=== PATIENT | female | born 2000 ===

== ENCOUNTER 2020-07-05 18:05 | Emergency (ER) | payer OTHER ==
--- NOTE | 2020-07-05 18:28 | EDM.PDOC ---
<Cedric Fulton - Last Filed: 07/05/20 19:10> ED HPI GENERAL MEDICAL PROBLEM - General Chief Complaint: General Stated Complaint: SINUS CONGESTION AND SWOLLEN LEGS Time Seen by Provider: 07/05/20 18:28 - History of Present Illness INITIAL COMMENTS - FREE TEXT/NARRATIVE: 19-year-old female presents the emergency room with significant sinus pressure and congestion and leg swelling. The patient was on a long flight 2 days ago from [place] to here and since that time she has had increased problems with her leg swelling up right leg much worse than the left. Patient has had worsening sinus congestion with greenish off-color discharge. She really has not had any fevers or chills this has been progressing but has really been bad for the last 24 hours. Seems to be worse underneath her left eye. Bilateral Lower Leg Pain Score (Numeric/FACES): 8 - Related Data Allergies Allergy/AdvReac Type Severity Reaction Status Date / Time morphine Allergy Rash Verified 07/05/20 18:30 Home Meds: Home Meds Amoxicillin/Potassium Clav [Augmentin 875-125 Tablet] 1 each PO BID #20 tablet 07/05/20 [Rx] Furosemide [Lasix] 20 mg PO DAILY 07/05/20 [History] Pregabalin [Lyrica] 50 mg PO DAILY 07/05/20 [History] Spironolactone [Aldactone] 100 mg PO DAILY 07/05/20 [History] Topiramate [Topamax] 150 mg PO DAILY 07/05/20 [History] metFORMIN [Glucophage XR] 500 mg PO DAILY 07/05/20 [History] ED ROS GENERAL - Review of Systems Review Of Systems: See Below Constitutional: Reports: No Symptoms HEENT: Reports: Rhinitis, Sinus Problem. Denies: No Symptoms Respiratory: Reports: No Symptoms Cardiovascular: Reports: No Symptoms GI/Abdominal: Reports: No Symptoms Musculoskeletal: Reports: No Symptoms Skin: Reports: No Symptoms Neurological: Reports: No Symptoms Psychiatric: Reports: No Symptoms ED EXAM, GENERAL - Physical Exam Exam: See Below Exam Limited By: No Limitations General Appearance: Alert, No Apparent Distress Eye Exam: Bilateral Eye: Normal Inspection Ears: Normal External Exam, Normal Canal, Hearing Grossly Normal, Normal TMs Nose: Normal Inspection, Normal Mucosa, No Blood, Other (Sinus percussion shows marked sinus tenderness over the left maxillary sinus and to a lesser degree right frontal sinus) Throat/Mouth: Normal Inspection, Normal Lips, Normal Teeth, Normal Gums, Normal Oropharynx, Normal Voice, No Airway Compromise Neck: Normal Inspection, Supple, Non-Tender, Full Range of Motion. No: Lymphadenopathy (L), Lymphadenopathy (R) Respiratory/Chest: No Respiratory Distress, Lungs Clear, Normal Breath Sounds Cardiovascular: Regular Rate, Rhythm, No Edema, No Murmur Extremities: Other (Palpation of the left lower leg is normal the right lower leg is slightly more swollen than the left she has pain along the medial aspect of the lower leg no significant redness or warmth however) Neurological: Alert, Oriented, CN II-XII Intact, Normal Cognition, Normal Gait, Normal Reflexes, No Motor/Sensory Deficits Course - Re-Assessments/Exams Free Text/Narrative Re-Assessment/Exam: 07/05/20 19:13 We will check a lower leg Doppler of the right leg. We will check some basic labs make sure she does not have any electrolyte anomalies and then she can increase her Lasix to 40 mg daily for a couple of days. We will send in a prescription for Augmentin for sinus infection however the patient's been advised to hold off on it for several days and try sinus irrigation first. 07/05/20 19:24 Change of shift labs will be reviewed and ultrasound report reviewed by Deneen Wagner nurse practitioner as it is change of shift. Departure - Departure Disposition: Home, Self-Care 01 Clinical Impression: Swelling of lower extremity Sinusitis Qualifiers: Sinusitis location: other Chronicity: acute Recurrence: not specified as recurrent Qualified Code(s): J01.80 - Other acute sinusitis Nausea and vomiting Qualifiers: Vomiting type: unspecified Vomiting Intractability: non-intractable Qualified Code(s): R11.2 - Nausea with vomiting, unspecified - Discharge Information Prescriptions: Amoxicillin/Potassium Clav [Augmentin 875-125 Tablet] 1 each PO BID #20 tablet Referrals: Tara Archer PA-C [Primary Care Provider] - Forms: ED Department Discharge Additional Instructions: Return to the emergency room with any questions problems or worsening symptoms. Follow-up with your regular healthcare provider early this next week if needed. For your sinuses start out with sinus irrigation do this up to 4 times a day for 2 or 3 days if you are not getting significantly better then take the antibiotics. These were sent to the [facility] in [place] electronically. For your leg swelling double your Lasix to 40 mg for 2 days and then resume normal dosing Use the Zofran as prescribed for nausea. <Deneen Wagner - Last Filed: 07/05/20 22:34> Course - Vital Signs Last Recorded V/S: Last Vital Signs Temp 98.5 F 07/05/20 18:21 Pulse 102 H 07/05/20 18:21 Resp 20 07/05/20 18:21 BP 130/100 H 07/05/20 18:21 Pulse Ox 100 07/05/20 18:21 - Orders/Labs/Meds Orders: Active Orders 24 hr Category Date Time Status Chest PE [Ang Chest] [CT] Stat Exams 07/05/20 20:46 Taken VL Duplex Lwr Ext Veins Ltd Rt [US] Stat Exams 07/05/20 18:48 Taken Sodium Chloride 0.9% [Normal Saline] 1,000 ml Med 07/05/20 20:46 Active IV NOW Sodium Chloride 0.9% [Normal Saline] 100 ml Med 07/05/20 21:30 Active IV ASDIRECTED Medication Orders Sodium Chloride (Normal Saline) 1,000 mls @ 150 mls/hr IV NOW STA Stop: 07/06/20 03:25 Last Admin: 07/05/20 21:01 Dose: 150 mls/hr Documented by: KAREN Sodium Chloride (Normal Saline) 100 mls @ 60 mls/hr IV ASDIRECTED DOLORES Last Admin: 07/05/20 21:40 Dose: 60 mls/hr Documented by: TIFFANY Labs: Laboratory Tests 07/05/20 07/05/20 07/05/20 Range/Units 19:10 19:10 19:10 WBC 10.94 H (3.98-10.04) K/mm3 RBC 4.49 (3.98-5.22) M/mm3 Hgb 12.2 (11.2-15.7) gm/dl Hct 38.7 (34.1-44.9) % MCV 86.2 (79.4-94.8) fl MCH 27.2 (25.6-32.2) pg MCHC 31.5 L (32.2-35.5) g/dl RDW Std Deviation 51.8 H (36.4-46.3) fL Plt Count 313 (182-369) K/mm3 MPV 10.5 (9.4-12.3) fl Neut % (Auto) 76.0 H (34.0-71.1) % Lymph % (Auto) 15.0 L (19.3-51.7) % [place] % (Auto) 6.9 (4.7-12.5) % Eos % (Auto) 1.5 (0.7-5.8) Baso % (Auto) 0.2 (0.1-1.2) % Neut # (Auto) 8.32 H (1.56-6.13) K/mm3 Lymph # (Auto) 1.64 (1.18-3.74) K/mm3 [place] # (Auto) 0.76 H (0.24-0.36) K/mm3 Eos # (Auto) 0.16 (0.04-0.36) K/mm3 Baso # (Auto) 0.02 (0.01-0.08) K/mm3 Manual Slide Review Abnormal smear PT 11.0 (9.7-12.0) SECONDS INR 1.03 APTT 32.2 H (21.7-31.4) SECONDS D-Dimer, Quantitative (0.19-0.50) mg/L Sodium 141 (136-145) mEq/L Potassium 3.3 L (3.5-5.1) mEq/L Chloride 107 (98-107) mEq/L Carbon Dioxide 25 (21-32) mEq/L Anion Gap 12.3 (5-15) BUN 4 L (7-18) mg/dL Creatinine 0.8 (0.55-1.02) mg/dL Est Cr Clr Drug Dosing 108.17 mL/min Estimated GFR (MDRD) > 60 (>60) mL/min BUN/Creatinine Ratio 5.0 L (14-18) Glucose 108 H (70-99) mg/dL Calcium 8.4 L (8.5-10.1) mg/dL Total Bilirubin 0.2 (0.2-1.0) mg/dL AST 13 L (15-37) U/L ALT 25 (14-59) U/L Alkaline Phosphatase 154 H (46-116) U/L Total Protein 6.9 (6.4-8.2) g/dl Albumin 3.2 L (3.4-5.0) g/dl Globulin 3.7 gm/dL Albumin/Globulin Ratio 0.9 L (1-2) // Range/Units 19:10 WBC (3.98-10.04) K/mm3 RBC (3.98-5.22) M/mm3 Hgb (11.2-15.7) gm/dl Hct (34.1-44.9) % MCV (79.4-94.8) fl MCH (25.6-32.2) pg MCHC (32.2-35.5) g/dl RDW Std Deviation (36.4-46.3) fL Plt Count (182-369) K/mm3 MPV (9.4-12.3) fl Neut % (Auto) (34.0-71.1) % Lymph % (Auto) (19.3-51.7) % [place] % (Auto) (4.7-12.5) % Eos % (Auto) (0.7-5.8) Baso % (Auto) (0.1-1.2) % Neut # (Auto) (1.56-6.13) K/mm3 Lymph # (Auto) (1.18-3.74) K/mm3 [place] # (Auto) (0.24-0.36) K/mm3 Eos # (Auto) (0.04-0.36) K/mm3 Baso # (Auto) (0.01-0.08) K/mm3 Manual Slide Review PT (9.7-12.0) SECONDS INR APTT (21.7-31.4) SECONDS D-Dimer, Quantitative 0.66 H (0.19-0.50) mg/L Sodium (136-145) mEq/L Potassium (3.5-5.1) mEq/L Chloride (98-107) mEq/L Carbon Dioxide (21-32) mEq/L Anion Gap (5-15) BUN (7-18) mg/dL Creatinine (0.55-1.02) mg/dL Est Cr Clr Drug Dosing mL/min Estimated GFR (MDRD) (>60) mL/min BUN/Creatinine Ratio (14-18) Glucose (70-99) mg/dL Calcium (8.5-10.1) mg/dL Total Bilirubin (0.2-1.0) mg/dL AST (15-37) U/L ALT (14-59) U/L Alkaline Phosphatase (46-116) U/L Total Protein (6.4-8.2) g/dl Albumin (3.4-5.0) g/dl Globulin gm/dL Albumin/Globulin Ratio (1-2) Meds: Medications Generic Name Dose Route Start Last Admin Trade Name Freq PRN Reason Stop Dose Admin Sodium Chloride 1,000 mls @ 150 mls/hr 07/05/20 20:46 07/05/20 21:01 Normal Saline IV 07/06/20 03:25 150 mls/hr NOW STA Administration Sodium Chloride 100 mls @ 60 mls/hr 07/05/20 21:30 07/05/20 21:40 Normal Saline IV 60 mls/hr ASDIRECTED DOLORES Administration Discontinued Medications Generic Name Dose Route Start Last Admin Trade Name Freq PRN Reason Stop Dose Admin Famotidine 20 mg 07/05/20 21:19 07/05/20 21:46 Famotidine 20 Mg/2 Ml Sdv IVPUSH 07/05/20 21:20 20 mg ONETIME ONE Administration Iopamidol 100 ml 07/05/20 21:18 07/05/20 21:40 Iopamidol 755 Mg/Ml 100 Ml Bottle IVPUSH 07/05/20 21:19 100 ml ONETIME ONE Administration Ondansetron HCl 4 mg 07/05/20 19:55 07/05/20 19:58 Ondansetron 4 Mg Tab.Dis PO 07/05/20 19:56 4 mg ONETIME ONE Administration Ondansetron HCl 4 mg 07/05/20 20:46 07/05/20 21:01 Ondansetron 4 Mg/2 Ml Sdv IVPUSH 07/05/20 20:47 4 mg ONETIME ONE Administration Sodium Chloride 10 ml 07/05/20 21:18 07/05/20 21:40 Sodium Chloride 0.9% 10 Ml Syringe FLUSH 07/05/20 21:19 10 ml ONETIME ONE Administration - Re-Assessments/Exams Free Text/Narrative Re-Assessment/Exam: 07/05/20 20:04 Care assumed at end of shift from Dr. Fulton. Patient did have an episode of vomiting short time ago. She reports that she felt an intense chest pain and then the vomiting occurred. Given her onset of chest pain as well as some mild shortness of breath , I have ordered D-dimer. Venous Doppler ultrasound of the right lower extremity was negative for DVT. Blood work was otherwise unremarkable. She denies any abdominal pain. 07/05/20 21:49 Patient complains of recurrence of burning chest pain as well as some vomiting. CT angiogram results are pending. I ordered Pepcid 20 mg IV in addition to the Zofran 4 mg IV already given. 07/05/20 22:33 CT angiogram of the chest shows no evidence of pulmonary emboli or any acute abnormalities. Her nausea has resolved we will discharge her home with recommendation to double her Lasix and spironolactone for 2 days and then resume normal dosing. I will give her an [facility] med prescription for Zofran. I will also provide her a note off from work for tonight and tomorrow. Discharge instructions as documented. Departure - Departure Time of Disposition: 22:33 Sepsis Event Note (ED) - Focused Exam Vital Signs: Vital Signs Temp Pulse Resp BP Pulse Ox 07/05/20 18:21 98.5 F 102 H 20 130/100 H 100 - My Orders Last 24 Hours: My Active Orders 07/05/20 20:46 Chest PE [Ang Chest] [CT] Stat Sodium Chloride 0.9% [Normal Saline] 1,000 ml IV NOW 07/05/20 21:30 Sodium Chloride 0.9% [Normal Saline] 100 ml IV ASDIRECTED - Assessment/Plan Last 24 Hours: My Active Orders 07/05/20 20:46 Chest PE [Ang Chest] [CT] Stat Sodium Chloride 0.9% [Normal Saline] 1,000 ml IV NOW 07/05/20 21:30 Sodium Chloride 0.9% [Normal Saline] 100 ml IV ASDIRECTED
[2020-07-05] MEDS ORDERED: Ondansetron 4 MG Tab.DIS PO ONE (19:55)
[2020-07-05] MEDS ORDERED: Sodium Chloride 0.9% 1,000 ML IV STA (20:46)
[2020-07-05] MEDS ORDERED: Ondansetron 4 MG/2 ML SDV IVPUSH ONE (20:46)
[2020-07-05] MEDS ORDERED: Iopamidol 755 Mg/ML 100 ML Bottle IVPUSH ONE (21:18)
[2020-07-05] MEDS ORDERED: Sodium Chloride 0.9% 10 ML Syringe FLUSH ONE (21:18)
[2020-07-05] MEDS ORDERED: Famotidine 20 MG/2 ML SDV IVPUSH ONE (21:19)
[2020-07-05] MEDS ORDERED: Sodium Chloride 0.9% 100 ML IV SCH (21:30)
--- NOTE | 2020-07-06 07:51 | US ---
Right lower extremity deep venous ultrasound: Duplex and color Doppler evaluation was obtained of the right common femoral, proximal greater saphenous, superficial femoral, popliteal, posterior tibial and peroneal veins. Left common femoral vein was also evaluated. Findings: Normal phasic flow, augmentation and compression is seen. Impression: 1. No evidence of deep venous thrombosis within the right lower extremity or within the left common femoral vein. Diagnostic code #1 I agree with preliminary report from [facility] finalized on 07/05/20, 9:00 PM CDT, code 1
--- NOTE | 2020-07-06 07:55 | CT ---
CT chest Technique: Multiple axial sections through the chest were obtained. Intravenous contrast was utilized. Study has been performed as a pulmonary angiogram protocol. Comparison: No prior chest imaging is available. Findings: Surgical clips are seen from prior cholecystectomy. Other visualized upper abdominal structures are within normal limits. No pericardial thickening is seen. Mediastinum shows no adenopathy or mass. Small amount of residual thymus is noted. Pulmonary arteries show no filling defects to indicate pulmonary embolism. Lung window settings show no acute parenchymal finding. No pleural effusions are seen. Bone window settings were reviewed which show no acute osseous finding. Impression: 1. No findings of pulmonary embolism. 2. Nothing acute is seen on CT study of the chest. Diagnostic code #1 I agree with preliminary report from [facility] finalized on 07/05/20, 11:03 PM CDT, code 1
== END 2020-07-05 22:46 | disposition home or self-care (01) ==
LOC: JD.ED 18:05
DX: J01.80 Other acute sinusitis (principal); R11.2 Nausea with vomiting, unspecified; R22.41 Localized swelling, mass and lump, right lower limb; R22.42 Localized swelling, mass and lump, left lower limb; Z88.5 Allergy status to narcotic agent; Z79.899 Other long term (current) drug therapy; Z79.84 Long term (current) use of oral hypoglycemic drugs
CPT/HCPCS: 36415; 71275; 80053; 85025; 85379; 85610; 85730; 93971; 96374; 96375; 99284; A9270; J2405; J3490; J7030; Q9967; 99283